=== PATIENT | male | born 1950 | race Caucasian/White ===

== ENCOUNTER 2016-04-28 10:35 | Emergency (ER) | payer OTHER ==
[2016-04-28 10:53] LABS: EOSINOPHIL (%) 6.8 % (0-5); EOSINOPHIL COUNT 0.5 K/uL (0-0.3); HEMATOCRIT 46.4 % (38.0-50.0); IMMATURE GRANULOCYTE (%) 0.1 % (0.0-0.7); IMMATURE GRANULOCYTE COUNT 0.1 K/uL; LYMPHOCYTE COUNT 2.6 K/uL (1.0-2.8); MCH 32.7 PG (29.0-34.0); MCHC 34.3 G/DL (30.0-36.0); MCV 95.5 FL (86-99); MEAN PLAT.VOLUME 10.2 uM^3 (9.0-12.4); MONOCYTE (%) 8.5 % (3-12); MONOCYTE COUNT 0.6 K/uL (0-0.8); NEUTROPHIL (%) 49.9 % (45-76); NEUTROPHIL COUNT 3.7 K/uL (1.8-6.4); PLATELET COUNT 279 K/uL (156-360); RBC DIS.WIDTH-CV 13.1 % (11.8-14.6); RBC DIS.WIDTH-SD 44.3 % (39-53); RED BLOOD COUNT 4.86 M/uL (4.00-5.50); WHITE BLOOD COUNT 7.5 K/uL (4.1-10.2)
[2016-04-28 11:01] LABS: AMYLASE 56 IU/L (1-118); CHLORIDE 109 mEq/L (99-109); POTASSIUM 4.4 mEq/L (3.7-5.4); SODIUM 144 mEq/L (136-147)
[2016-04-28 11:03] LABS: GLUCOSE 86 mg/dL (70-99)
[2016-04-28 11:04] LABS: ANION GAP 13 MEQ/L (2-14)
[2016-04-28 11:06] LABS: SERUM ETHYL ALCOHOL < 10 mg/dL
[2016-04-28 11:07] LABS: GFR ESTIMATE (CALCULATED) > 59 mL/min/
[2016-04-28 11:08] LABS: UREA NITROGEN (BUN) 27 mg/dL (9-23)
[2016-04-28 11:10] LABS: LIPASE 37 U/L (1.0-51.0)
== END 2016-04-28 13:05 | disposition home or self-care (01) ==
LOC: TRA 10:35
PROVIDERS: Emergency Medicine
PROC: 0HQGXZZ Repair Left Hand Skin, External Approach (ICD-10-PCS; principal; 2016-04-28)
DX: S06.0X9A Concussion with loss of consciousness of unspecified duration, initial encounter (principal); S61.215A Laceration without foreign body of left ring finger without damage to nail, initial encounter; S61.213A Laceration without foreign body of left middle finger without damage to nail, initial encounter; S00.83XA Contusion of other part of head, initial encounter; S80.02XA Contusion of left knee, initial encounter; W22.09XA Striking against other stationary object, initial encounter
CPT/HCPCS: 70450; 70486; 71010; 72125; 72170; 73130; 73560; 80048; 81003; 82150; 83690; 85025; 86850; 86900; 86901; 99281; 99285; G0480